=== PATIENT | female | born 1980 | race Caucasian/White ===

== ENCOUNTER 2017-07-09 10:41 | Emergency (ER) | payer BC ==
[2017-07-09] MEDS: LIDOCAINE 1% (MDV) 20 ML INJ SC (12:41)
== END 2017-07-09 13:53 | disposition home or self-care (01) ==
LOC: FTE 10:41
DX: S61.411A Laceration without foreign body of right hand, initial encounter (principal); F17.210 Nicotine dependence, cigarettes, uncomplicated; W23.1XXA Caught, crushed, jammed, or pinched between stationary objects, initial encounter; Y92.9 Unspecified place or not applicable
CPT/HCPCS: 12001; 73130-RT; 99283-25